=== PATIENT | female | born 1995 | race Caucasian/White ===

== ENCOUNTER → 2016-09-10 | Outpatient (CLI) | payer MEDICAID ==
--- NOTE | 2016-09-12 15:06 | US ---
EXAM DATE: 09/10/16 PATIENT'S AGE: 21 Patient: LEE ASHLEY Facility: [place], [place] Site . Site : 1995 Study: US OB Pelvis [id number]/13/2017 10:23:32 AM Ordering Physician: Miesha Edwards Final Report: INDICATION: survey. Gestational age by LMP of 21 weeks and 0 days. TECHNIQUE: Ultrasound OB pelvis. Real-time moore-scale imaging of the fetus was performed. COMPARISON: None. FINDINGS: Sonographic imaging demonstrates a single living intrauterine gestation. Fetus demonstrates a regular cardiac rate of 160 beats per minute. Fetus has a breech orientation. The placenta lies posteriorly without evidence of placenta previa. Amniotic fluid volume appears normal. The composite ultrasound gestational age is calculated at 21 weeks and 0 days with an estimated sonographic due date of 01/21/2017. The estimated weight is 410 grams which lies at the 59th percentile. The following biometric measurements were obtained: Biparietal diameter: 4.81 cm, 20 weeks and 4 days. Head circumference: 18.09 cm, 20 weeks and 4 days. Abdominal circumference: 16.51 cm, 21 weeks and 4 days. Femur length: 3.53 cm, 21 weeks and 2 days. On anatomic survey, there is a normal appearance of the cerebral ventricles, cisterna magna and cerebellum. The nose, lips, and facial profile appear normal. The cervical, thoracic and lumbar spines are well visualized and appear normal. There is a normal four-chamber heart and the left and right ventricular outflow tracts appear normal. diaphragm, stomach, kidneys and bladder appear normal. There is a normal three-vessel cord and cord insertion site. The four extremities appear normal. IMPRESSION: 1. Single living intrauterine . measurements are concordant with dates by LMP. 2. No gross abnormalities noted on anatomic survey. Dictated by Carlin Bui MD @ Sep 10 2016 11:52AM (Electronic Signature) Report Signed by Proxy and Original Signed Document filed in the Medical Record. [facility]
== END ==
LOC: MW.US 09:25
PROVIDERS: ATTEND Advanced Practice Midwife
DX: Z34.92 Encounter for supervision of normal pregnancy, unspecified, second trimester (principal); Z3A.21 21 weeks gestation of pregnancy
CPT/HCPCS: 76805; 76805-26

== ENCOUNTER → 2016-10-08 | Outpatient (CLI) | payer MEDICAID | LOC: MW.CHOBGYN 07:31 | PROVIDERS: ATTEND Advanced Practice Midwife | DX: Z34.90 Encounter for supervision of normal pregnancy, unspecified, unspecified trimester (principal) | CPT/HCPCS: 36415; 82950; 85027; 86850 ==

== ENCOUNTER 2017-01-23 11:01 | Inpatient (IN) | payer MEDICAID ==
[2017-01-23] MEDS ORDERED: Carboprost Tromethamine 250 MCG/1 ML Amp IM PRN (11:34)
[2017-01-23] MEDS ORDERED: Misoprostol 25 MCG (1/4 of 100 MCG) Tab PO PRN (11:34)
[2017-01-23] MEDS ORDERED: Methylergonovine 0.2 MG/1 ML Amp IM PRN (11:34)
[2017-01-23] MEDS ORDERED: Terbutaline 1 MG/ML SDV SUBCUT PRN (11:34)
[2017-01-23] MEDS ORDERED: Nalbuphine 10 MG/1 ML Vial IVPUSH PRN (11:34)
[2017-01-23] MEDS ORDERED: Lidocaine 1% 50 ML MDV INJECT PRN (11:34)
[2017-01-23] MEDS ORDERED: Water For Irrigation,Sterile 1,000 ML Container IRR PRN (11:34)
[2017-01-23] MEDS ORDERED: Misoprostol 25 MCG (1/4 of 100 MCG) Tab VAG PRN (11:34)
[2017-01-23] MEDS ORDERED: Misoprostol 200 MCG Tab PO PRN (11:34)
[2017-01-23] MEDS ORDERED: Sodium Chloride 0.9% 2.5 ML Syringe FLUSH PRN (11:34)
[2017-01-23] MEDS ORDERED: Sodium Chloride 0.9% 10 ML Syringe FLUSH PRN (11:34)
[2017-01-23] MEDS ORDERED: Misoprostol 25 MCG (1/4 of 100 MCG) Tab PO SCH (11:45)
[2017-01-23] MEDS ORDERED: Oxytocin/Lactated Ringers 30 UNIT/500 ML BAG IV SCH ×2 (11:45)
[2017-01-23 12:55] LABS: CHLORIDE,CL 108 mmol/L (98-110); SODIUM,NA 139 mmol/L (136-146)
[2017-01-23] MEDS: Misoprostol 25 MCG (1/4 of 100 MCG) Tab VAG SCH (19:47)
[2017-01-24] MEDS: Misoprostol 25 MCG (1/4 of 100 MCG) Tab VAG SCH (01:20)
[2017-01-24] MEDS: Lactated Ringers 1,000 ML IV SCH ×4 (02:37→16:12)
[2017-01-24] MEDS ORDERED: Oxytocin/Lactated Ringers 30 UNIT/500 ML BAG IV SCH (06:30)
--- NOTE | 2017-01-24 07:32 | PCM.LDHP ---
L&D History of Present Illness - General Date of Service: 01/23/17 Admit Problem/Dx: Patient Status Order with Admit Dx/Problem 01/23/17 11:35 Patient Status [ADT] Routine Admission Diagnosis/Problem Admission Diagnosis/Problem 01/24/17 07:28 21 yo EDC 01/21/2017 40 3/7 wks gestation, B+, RI, GBS neg. Admitted to L&D for IOL due to elevated blood pressures and edema. Source of Information: Patient History Limitations: Reports: No Limitations - History of Present Illness Improves with: Reports: None Worsens with: Reports: None Associated Symptoms: Reports: N - Related Data Allergies/Adverse Reactions: Allergies Allergy/AdvReac Type Severity Reaction Status Date / Time No Known Allergies Allergy Verified 01/16/17 09:08 Past Medical History [employer] History: Reports: Social & Family History - Family History Family Medical History: Noncontributory - Tobacco Use Smoking Status *Q: Former Smoker Years of Tobacco use: 6 Packs/Tins Daily: 0.5 Used Tobacco, but Quit: Yes Month Tobacco Last Used: december 2015 Second Hand Smoke Exposure: No - Caffeine Use Caffeine Use: Reports: Coffee, Soda - Recreational Drug Use Recreational Drug Use: No H&P Review of Systems - Review of Systems: Review Of Systems: ROS reveals no pertinent complaints other than HPI. General: Reports: No Symptoms HEENT: Reports: No Symptoms Pulmonary: Reports: No Symptoms Cardiovascular: Reports: No Symptoms Gastrointestinal: Reports: No Symptoms Genitourinary: Reports: No Symptoms Musculoskeletal: Reports: No Symptoms Skin: Reports: No Symptoms Psychiatric: Reports: No Symptoms Neurological: Reports: No Symptoms Hematologic/Lymphatic: Reports: No Symptoms Immunologic: Reports: No Symptoms L&D Exam - Exam Exam: See Below - Vital Signs Weight: 93.44 kg - Exam General: Alert, Oriented, Cooperative HEENT: Hearing Intact Lungs: Normal Respiratory Effort GI/Abdominal Exam: Soft, Non-Tender, No Organomegaly (gravid) Rectal Exam: Deferred Genitourinary: Normal bimanual exam, Cervical dilitation Back Exam: Full Range of Motion Extremities: Normal Range of Motion, Non-Tender, Pedal Edema Skin: Warm, Dry, Intact Neurological: Cranial Nerves Intact, Normal Speech, Normal Tone, Other (denies headaches) Psychiatric: Alert, Normal Affect, Normal Mood - Patient Data Lab Results Last 24 hrs: Laboratory Results - last 24 hr 01/23/17 01/23/17 01/23/17 Range/Units 11:41 12:03 12:03 WBC 6.75 (4.0-11.0) K/uL RBC 3.14 L (4.30-5.90) M/uL Hgb 9.7 L (12.0-16.0) g/dL Hct 28.4 L (36.0-46.0) % MCV 90.4 (80.0-98.0) fL MCH 30.9 (27.0-32.0) pg MCHC 34.2 (31.0-37.0) g/dL RDW Std Deviation 46.8 (28.0-62.0) fl RDW Coeff of Alisson 14 (11.0-15.0) % Plt Count 250 (150-400) K/uL MPV 10.70 (7.40-12.00) fL Nucleated RBC % 0.0 /100WBC Nucleated RBCs # 0 K/uL Sodium 139 (136-146) mmol/L Potassium 3.8 (3.5-5.1) mmol/L Chloride 108 (98-110) mmol/L Carbon Dioxide 23 (21-31) mmol/L BUN 5 L (6.0-23.0) mg/dL Creatinine 0.6 (0.6-1.5) mg/dL Est Cr Clr Drug Dosing 147.10 mL/min Estimated GFR (MDRD) > 60.0 ml/min Glucose 65 (60-110) mg/dL Uric Acid (2.1-6.2) mg/dL Calcium 8.7 L (8.8-10.8) mg/dL Total Bilirubin 0.5 (0.1-1.5) mg/dL AST 24 (5-40) IU/L ALT 14 (8-54) IU/L Alkaline Phosphatase 205 H (40-150) Total Protein 5.7 L (6.0-8.0) g/dL Albumin 3.0 L (3.5-5.0) g/dL Globulin 2.7 (2.0-3.5) g/dL Albumin/Globulin Ratio 1.1 L (1.3-2.8) Ur Random Creatinine 29.5 mg/dL U Random Total Protein < 6.8 mg/dL Protein/Creatinin Ratio Blood Type Antibody Screen 01/23/17 01/23/17 Range/Units 12:03 12:03 WBC (4.0-11.0) K/uL RBC (4.30-5.90) M/uL Hgb (12.0-16.0) g/dL Hct (36.0-46.0) % MCV (80.0-98.0) fL MCH (27.0-32.0) pg MCHC (31.0-37.0) g/dL RDW Std Deviation (28.0-62.0) fl RDW Coeff of Alisson (11.0-15.0) % Plt Count (150-400) K/uL MPV (7.40-12.00) fL Nucleated RBC % /100WBC Nucleated RBCs # K/uL Sodium (136-146) mmol/L Potassium (3.5-5.1) mmol/L Chloride (98-110) mmol/L Carbon Dioxide (21-31) mmol/L BUN (6.0-23.0) mg/dL Creatinine (0.6-1.5) mg/dL Est Cr Clr Drug Dosing mL/min Estimated GFR (MDRD) ml/min Glucose (60-110) mg/dL Uric Acid 4.1 (2.1-6.2) mg/dL Calcium (8.8-10.8) mg/dL Total Bilirubin (0.1-1.5) mg/dL AST (5-40) IU/L ALT (8-54) IU/L Alkaline Phosphatase (40-150) Total Protein (6.0-8.0) g/dL Albumin (3.5-5.0) g/dL Globulin (2.0-3.5) g/dL Albumin/Globulin Ratio (1.3-2.8) Ur Random Creatinine mg/dL U Random Total Protein mg/dL Protein/Creatinin Ratio Blood Type B POSITIVE Antibody Screen NEGATIVE Result Diagrams: 01/23/17 12:03 01/23/17 12:03 - Problem List (1) Supervision of normal IUP (intrauterine ) in primigravida SNOMED Code(s): 90907162, 755889008, 104633013, 350619827 ICD Code: Z34.00 - ENCNTR FOR SUPRVSN OF NORMAL FIRST , UNSP TRIMESTER Status: Acute Priority: High Current Visit: Yes Qualifiers: Trimester: third trimester Qualified Code(s): Z34.03 - Encounter for supervision of normal first , third trimester (2) Elevated blood pressure affecting in third trimester, antepartum SNOMED Code(s): 97123024, 19522792, 575785257 ICD Code: O13.3 - GESTATIONAL HTN W/O SIGNIFICANT PROTEINURIA, THIRD TRIMESTER Status: Acute Priority: High Current Visit: Yes Problem List Initiated/Reviewed/Updated: Yes Orders Last 24hrs: Active Orders 24 hr Category Date Time Status Patient Status [ADT] Routine ADT 01/23/17 11:35 Active Bedrest Bathroom Privileges [RC] ASDIRECTED Care 01/23/17 11:35 Active Communication Order [RC] ASDIRECTED Care 01/23/17 11:35 Active Communication Order [RC] ASDIRECTED Care 01/23/17 11:35 Active Communication Order [RC] ASDIRECTED Care 01/23/17 11:35 Active Heart Tones [RC] CONTINUOUS Care 01/23/17 11:35 Active Non Stress Test [RC] PER UNIT ROUTINE Care 01/23/17 11:35 Active May Shower [RC] ASDIRECTED Care 01/23/17 11:35 Active Notify Provider [RC] PRN Care 01/23/17 11:35 Active Notify Provider [RC] PRN Care 01/23/17 11:35 Active Notify Provider [RC] PRN Care 01/23/17 11:35 Active Notify Provider [RC] STAT Care 01/23/17 11:35 Active Oxygen Therapy [RC] ASDIRECTED Care 01/23/17 11:35 Active Up ad Debra [RC] ASDIRECTED Care 01/23/17 11:35 Active Vaginal Exam [RC] PRN Care 01/23/17 11:35 Active Vaginal Exam [RC] PRN Care 01/23/17 11:35 Active Vital Signs [RC] PER UNIT ROUTINE Care 01/23/17 11:35 Active Vital Signs [RC] PER UNIT ROUTINE Care 01/23/17 11:35 Active Regular Diet [DIET] Diet 01/23/17 Breakfast Active Regular Diet [DIET] Diet 01/23/17 Breakfast Active Carboprost Tromethamine [Hemabate DS] Med 01/23/17 11:34 Active 250 mcg IM ASDIRECTED PRN Lactated Ringers [Ringers, Lactated] 1,000 ml [facility] 01/23/17 11:45 Active IV ASDIRECTED Lidocaine 1% [Xylocaine 1%] [facility] 01/23/17 11:34 Active 50 ml INJECT .ONCE PRN Methylergonovine [Methergine] [facility] 01/23/17 11:34 Active 0.2 mg IM ASDIRECTED PRN Misoprostol [Cytotec] [facility] 01/23/17 11:34 Active 200 mcg PO .ONCE PRN Misoprostol [Cytotec] [facility] 01/23/17 11:45 Active 25 mcg PO .ONCE Misoprostol [Cytotec] [facility] 01/23/17 11:34 Active 25 mcg PO Q4H PRN Misoprostol [Cytotec] [facility] 01/23/17 11:45 Active 25 mcg VAG .ONCE Misoprostol [Cytotec] [facility] 01/23/17 11:34 Active 25 mcg VAG Q4H PRN Nalbuphine [Nubain] [facility] 01/23/17 11:34 Active 10 mg IVPUSH ASDIRECTED PRN Oxytocin/Lactated Ringers [Pitocin in LR 30 Units/500 [facility] 01/23/17 11:45 Active ML] 30 unit in 500 ml IV TITRATE Oxytocin/Lactated Ringers [Pitocin in LR 30 Units/500 [facility] 01/24/17 06:30 Active ML] 30 unit in 500 ml IV TITRATE Sodium Chloride 0.9% [Saline Flush] [facility] 01/23/17 11:34 Active 10 ml FLUSH ASDIRECTED PRN Sodium Chloride 0.9% [Saline Flush] [facility] 01/23/17 11:34 Active 2.5 ml FLUSH ASDIRECTED PRN Terbutaline [Brethine] [facility] 01/23/17 11:34 Active 0.25 mg SUBCUT ASDIRECTED PRN Water For Irrigation,Sterile [Sterile Water for [facility] 01/23/17 11:34 Active Irrigation] 1,000 ml IRR ASDIRECTED PRN Scalp Electrode [WOMSER] Per Unit Routine Ot 01/23/17 11:35 Ordered Medication Administration Instruction [OM.PC] Q3H Ot 01/23/17 11:45 Ordered Peripheral IV Insertion Adult [OM.PC] Routine Ot 01/23/17 11:35 Ordered Resuscitation Status Routine Resus Stat 01/23/17 11:34 Ordered Medication Orders Carboprost Tromethamine (Hemabate Ds) 250 mcg IM ASDIRECTED PRN PRN Reason: Post Hemorrhage Lactated Ringer's (Ringers, Lactated) 1,000 mls @ 150 mls/hr IV ASDIRECTED FIDEL Last Admin: 01/24/17 02:37 Dose: 150 mls/hr Oxytocin/Lactated Ringer's (Pitocin In Lr 30 Units/500 Ml) 30 unit in 500 mls @ 2 mls/hr IV TITRATE FIDEL; 2 MUNITS/MIN PRN Reason: Protocol Oxytocin/Lactated Ringer's (Pitocin In Lr 30 Units/500 Ml) 30 unit in 500 mls @ 2 mls/hr IV TITRATE FIDEL; 2 MUNITS/MIN PRN Reason: Protocol Last Admin: 01/24/17 06:47 Dose: 2 munits/min, 2 mls/hr Lidocaine HCl (Xylocaine 1%) 50 ml INJECT .ONCE PRN PRN Reason: Laceration repair Methylergonovine Maleate (Methergine) 0.2 mg IM ASDIRECTED PRN PRN Reason: Post Hemorrhage Misoprostol (Cytotec) 200 mcg PO .ONCE PRN PRN Reason: Post Hemorrhage Misoprostol (Cytotec) 25 mcg VAG .ONCE FIDEL Last Admin: 01/24/17 01:20 Dose: 25 mcg Admin: 01/23/17 19:47 Dose: 25 mcg Misoprostol (Cytotec) 25 mcg VAG Q4H PRN PRN Reason: Cervical Ripening Stop: 01/24/17 15:35 Last Admin: 01/24/17 01:22 Dose: 25 mcg Misoprostol (Cytotec) 25 mcg PO .ONCE FIDEL Last Admin: 01/23/17 19:47 Dose: 25 mcg Misoprostol (Cytotec) 25 mcg PO Q4H PRN PRN Reason: Cervical Ripening Stop: 01/24/17 15:35 Nalbuphine HCl (Nubain) 10 mg IVPUSH ASDIRECTED PRN PRN Reason: Pain (severe 7-10) Stop: 01/24/17 11:35 Sodium Chloride (Saline Flush) 10 ml FLUSH ASDIRECTED PRN PRN Reason: Keep Vein Open Sodium Chloride (Saline Flush) 2.5 ml FLUSH ASDIRECTED PRN PRN Reason: Keep Vein Open Sterile Water (Sterile Water For Irrigation) 1,000 ml IRR ASDIRECTED PRN PRN Reason: delivery Terbutaline Sulfate (Brethine) 0.25 mg SUBCUT ASDIRECTED PRN PRN Reason: Tacysystole Assessment/Plan Comment:: IOL A:21 yo EDC 01/21/2017 40 3/7 wks gestation, B+, RI, GBS neg. Admitted to L& D for IOL due to elevated blood pressures and edema. P: Admit, IOL with Cytotec then pitocin if needed. Epidural prn, anticipate
[2017-01-24] MEDS ORDERED: Ropivacaine 0.2% 2 MG/ML 20 ML SDV ONE (07:46)
--- NOTE | 2017-01-24 08:18 | PCM.PREANE ---
Preanesthetic Assessment - Procedure Proposed Procedure: induction of labor for gestational htn - Anesthesia/Transfusion/Family Hx Anesthesia History: Prior Anesthesia Without Reaction Family History of Anesthesia Reaction: No Transfusion History: No Prior Transfusion(s) - Review of Systems Other: Reports: None - Physical Assessment Height: 5 ft 8 in Weight: 93.44 kg ASA Class: 2 Mental Status: Alert & Oriented x3 Airway Class: Mallampati = 1 Dentition: Reports: Normal Dentition Thyro-Mental Finger Breadths: 3 Mouth Opening Finger Breadths: 3 ROM/Head Extension: Full - Lab Values: Laboratory Last Values WBC 6.75 K/uL (4.0-11.0) 01/23/17 12:03 RBC 3.14 M/uL (4.30-5.90) L 01/23/17 12:03 Hgb 9.7 g/dL (12.0-16.0) L 01/23/17 12:03 Hct 28.4 % (36.0-46.0) L 01/23/17 12:03 MCV 90.4 fL (80.0-98.0) 01/23/17 12:03 MCH 30.9 pg (27.0-32.0) 01/23/17 12:03 MCHC 34.2 g/dL (31.0-37.0) 01/23/17 12:03 RDW Std Deviation 46.8 fl (28.0-62.0) 01/23/17 12:03 RDW Coeff of Alisson 14 % (11.0-15.0) 01/23/17 12:03 Plt Count 250 K/uL (150-400) 01/23/17 12:03 MPV 10.70 fL (7.40-12.00) 01/23/17 12:03 Nucleated RBC % 0.0 /100WBC 01/23/17 12:03 Nucleated RBCs # 0 K/uL 01/23/17 12:03 Sodium 139 mmol/L (136-146) 01/23/17 12:03 Potassium 3.8 mmol/L (3.5-5.1) 01/23/17 12:03 Chloride 108 mmol/L (98-110) 01/23/17 12:03 Carbon Dioxide 23 mmol/L (21-31) 01/23/17 12:03 BUN 5 mg/dL (6.0-23.0) L 01/23/17 12:03 Creatinine 0.6 mg/dL (0.6-1.5) 01/23/17 12:03 Est Cr Clr Drug Dosing 147.10 mL/min 01/23/17 12:03 Estimated GFR (MDRD) > 60.0 ml/min 01/23/17 12:03 Glucose 65 mg/dL (60-110) 01/23/17 12:03 Uric Acid 4.1 mg/dL (2.1-6.2) 01/23/17 12:03 Calcium 8.7 mg/dL (8.8-10.8) L 01/23/17 12:03 Total Bilirubin 0.5 mg/dL (0.1-1.5) 01/23/17 12:03 AST 24 IU/L (5-40) 01/23/17 12:03 ALT 14 IU/L (8-54) 01/23/17 12:03 Alkaline Phosphatase 205 (40-150) H 01/23/17 12:03 Total Protein 5.7 g/dL (6.0-8.0) L 01/23/17 12:03 Albumin 3.0 g/dL (3.5-5.0) L 01/23/17 12:03 Globulin 2.7 g/dL (2.0-3.5) 01/23/17 12:03 Albumin/Globulin Ratio 1.1 (1.3-2.8) L 01/23/17 12:03 Ur Random Creatinine 29.5 mg/dL 01/23/17 11:41 U Random Total Protein < 6.8 mg/dL 01/23/17 11:41 Protein/Creatinin Ratio 01/23/17 11:41 Blood Type B POSITIVE 01/23/17 12:03 Antibody Screen NEGATIVE 01/23/17 12:03 - Allergies Allergies/Adverse Reactions: Allergies Allergy/AdvReac Type Severity Reaction Status Date / Time No Known Allergies Allergy Verified 01/16/17 09:08 - Blood Blood Available: Yes Product(s) Available: PRBC - Acknowledgements Anesthesia Type Planned: Epidural Pt an Appropriate Candidate for the Planned Anesthesia: Yes Alternatives and Risks of Anesthesia Discussed w Pt/Guardian: Yes Pt/Guardian Understands and Agrees with Anesthesia Plan: Yes PreAnesthesia Questionnaire CAMP NURSE History: Reports: - SUBSTANCE USE Smoking Status *Q: Former Smoker Tobacco Use Within Last Twelve Months: No Second Hand Smoke Exposure: No Recreational Drug Use History: No - CURRENT (IN HOUSE) MEDS Current Meds: Current Medications Carboprost Tromethamine (Hemabate Ds) 250 mcg IM ASDIRECTED PRN PRN Reason: Post Hemorrhage Lactated Ringer's (Ringers, Lactated) 1,000 mls @ 150 mls/hr IV ASDIRECTED FIDEL Last Admin: 01/24/17 07:48 Dose: 150 mls/hr Oxytocin/Lactated Ringer's (Pitocin In Lr 30 Units/500 Ml) 30 unit in 500 mls @ 2 mls/hr IV TITRATE FIDEL; 2 MUNITS/MIN PRN Reason: Protocol Oxytocin/Lactated Ringer's (Pitocin In Lr 30 Units/500 Ml) 30 unit in 500 mls @ 2 mls/hr IV TITRATE FIDEL; 2 MUNITS/MIN PRN Reason: Protocol Last Admin: 01/24/17 06:47 Dose: 2 munits/min, 2 mls/hr Lidocaine HCl (Xylocaine 1%) 50 ml INJECT .ONCE PRN PRN Reason: Laceration repair Methylergonovine Maleate (Methergine) 0.2 mg IM ASDIRECTED PRN PRN Reason: Post Hemorrhage Misoprostol (Cytotec) 200 mcg PO .ONCE PRN PRN Reason: Post Hemorrhage Misoprostol (Cytotec) 25 mcg VAG .ONCE FIDEL Last Admin: 01/24/17 01:20 Dose: 25 mcg Misoprostol (Cytotec) 25 mcg VAG Q4H PRN PRN Reason: Cervical Ripening Stop: 01/24/17 15:35 Last Admin: 01/24/17 01:22 Dose: 25 mcg Misoprostol (Cytotec) 25 mcg PO .ONCE FIDEL Last Admin: 01/23/17 19:47 Dose: 25 mcg Misoprostol (Cytotec) 25 mcg PO Q4H PRN PRN Reason: Cervical Ripening Stop: 01/24/17 15:35 Nalbuphine HCl (Nubain) 10 mg IVPUSH ASDIRECTED PRN PRN Reason: Pain (severe 7-10) Stop: 01/24/17 11:35 Sodium Chloride (Saline Flush) 10 ml FLUSH ASDIRECTED PRN PRN Reason: Keep Vein Open Sodium Chloride (Saline Flush) 2.5 ml FLUSH ASDIRECTED PRN PRN Reason: Keep Vein Open Sterile Water (Sterile Water For Irrigation) 1,000 ml IRR ASDIRECTED PRN PRN Reason: delivery Terbutaline Sulfate (Brethine) 0.25 mg SUBCUT ASDIRECTED PRN PRN Reason: Tacysystole Discontinued Medications Oxytocin/Lactated Ringer's (Pitocin In Lr 30 Units/500 Ml) 30 unit in 500 mls @ 999 mls/hr IV ASDIRECTED FIDEL PRN Reason: 999 MUNITS/MIN Stop: 01/23/17 12:16 Ropivacaine/Fentanyl/NS (Fentanyl 2 Mcg-Ropiv 0.2%-Ns) Confirm Administered Dose 100 mls @ as directed .ROUTE .STK-MED ONE Stop: 01/24/17 07:46 Ropivacaine (Naropin 0.2%) Confirm Administered Dose 20 ml .ROUTE .STK-MED ONE Stop: 01/24/17 07:47
[2017-01-24] MEDS ORDERED: Calcium Carbonate 500 MG Tab.Chew PO ONE (14:15)
[2017-01-24] MEDS ORDERED: Ranitidine 15 MG/ML Syrup 10 ML UD Cup PO ONE (14:15)
[2017-01-24] MEDS ORDERED: Acetaminophen 500 MG Tab PO ONE (17:51)
[2017-01-24] MEDS ORDERED: Lactated Ringers 500 ML IV SCH (18:00)
[2017-01-24] MEDS ORDERED: Ondansetron 4 MG/2 ML SDV IVPUSH ONE (18:32)
[2017-01-24] MEDS ORDERED: Bupivacaine 0.5% 10 ML SDV ONE ×2 (19:07→19:32)
[2017-01-24] MEDS ORDERED: fentaNYL 100 MCG/2 ML SDV ONE (19:32)
[2017-01-24] MEDS ORDERED: Acetaminophen 500 MG Tab PO PRN ×2 (20:22)
[2017-01-24] MEDS ORDERED: Bisacodyl 10 MG Supp RECTAL PRN (20:22)
[2017-01-24] MEDS ORDERED: Ibuprofen 400 MG Tab PO PRN (20:22)
[2017-01-24] MEDS ORDERED: Witch Hazel Medicated Pads 40/Jar TOP PRN (20:22)
[2017-01-24] MEDS ORDERED: Benzocaine/Menthol 20%-0.5% Spray 78 GM Cannister TOP PRN (20:22)
[2017-01-24] MEDS ORDERED: Lanolin 100% Cream 7 GM Tube TOP PRN (20:22)
[2017-01-24] MEDS ORDERED: ePHEDrine 50 MG/ML SDV ONE (20:33)
[2017-01-24] MEDS: oxyCODONE 5 MG Tab PO PRN (20:57)
[2017-01-24] MEDS: Ibuprofen 800 MG Tab PO PRN (20:57)
[2017-01-24] MEDS: Docusate Sodium 100 MG Cap PO PRN (20:58)
[2017-01-24] MEDS ORDERED: diphenhydrAMINE 50 MG Cap PO ONE (21:31)
[2017-01-25] MEDS: oxyCODONE 5 MG Tab PO PRN ×2 (05:12→09:38)
[2017-01-25] MEDS: Ibuprofen 800 MG Tab PO PRN (05:13)
--- NOTE | 2017-01-25 07:56 | PCM.DCSUM1 ---
Discharge Summary - Hospital Course Free Text/Narrative:: Discharge home/to [place] to be with baby. Follow up 6 weeks or sooner if needed. - Discharge Data Discharge Date: 01/25/17 Discharge Disposition: Home, Self-Care 01 Condition: Good - Discharge Diagnosis/Problem(s) (1) Supervision of normal IUP (intrauterine ) in primigravida SNOMED Code(s): 87563562, 856572060, 965038696, 560471489 ICD Code: Z34.00 - ENCNTR FOR SUPRVSN OF NORMAL FIRST , UNSP TRIMESTER Status: Acute Priority: High Current Visit: Yes Qualifiers: Trimester: third trimester Qualified Code(s): Z34.03 - Encounter for supervision of normal first , third trimester (2) Elevated blood pressure affecting in third trimester, antepartum SNOMED Code(s): 39304242, 18765646, 748046280 ICD Code: O13.3 - GESTATIONAL HTN W/O SIGNIFICANT PROTEINURIA, THIRD TRIMESTER Status: Acute Priority: High Current Visit: Yes - Patient Instructions Diet: Usual Diet as Tolerated Activity: As Tolerated Driving: Do Not Drive Showering/Bathing: May Shower Notify Provider of: Fever, Increased Pain, Swelling and Redness, Drainage, Nausea and/or Vomiting Other/Special Instructions: Discharge home/to [place] to be with baby. Follow up 6 weeks or sooner if needed. - Discharge Plan Referrals: [facility] [Outside] Grace Whiteside CNM [Mid-] - 03/07/17 1:30 pm - General Info Date of Service: 01/25/17 Admission Dx/Problem (Free Text: Patient Status Order with Admit Dx/Problem 01/23/17 11:35 Patient Status [ADT] Routine Admission Diagnosis/Problem Admission Diagnosis/Problem 01/24/17 07:28 21 yo EDC 01/21/2017 40 3/7 wks gestation, B+, RI, GBS neg. Admitted to L&D for IOL due to elevated blood pressures and edema. Functional Status: Reports: Pain Controlled, Tolerating Diet, Ambulating, Urinating - Review of Systems General: Reports: No Symptoms HEENT: Reports: No Symptoms Pulmonary: Reports: No Symptoms Cardiovascular: Reports: No Symptoms Gastrointestinal: Reports: No Symptoms Genitourinary: Reports: No Symptoms Musculoskeletal: Reports: No Symptoms Skin: Reports: No Symptoms Neurological: Reports: No Symptoms Psychiatric: Reports: No Symptoms - Patient Data Vitals - Most Recent: Last Vital Signs Temp 36.8 C 01/25/17 06:00 Pulse 92 01/25/17 06:00 Resp 17 01/25/17 06:00 BP 107/65 01/25/17 06:00 Pulse Ox 98 01/25/17 04:54 Weight - Most Recent: 93.44 kg I&O - Last 24 hours: Intake & Output 01/24/17 01/25/17 01/25/17 22:59 06:59 14:59 Intake Total 0 735 Balance 0 735 Lab Results - Last 24 hrs: Laboratory Results - last 24 hr 01/23/17 01/24/17 01/25/17 Range/Units 12:03 20:50 06:15 Hgb 7.4 L 8.7 L (12.0-16.0) g/dL Hct 21.9 L 25.2 L (36.0-46.0) % Blood Type B POSITIVE Antibody Screen NEGATIVE Crossmatch See Detail Med Orders - Current: Current Medications Acetaminophen (Tylenol Extra Strength) 500 mg PO Q4H PRN PRN Reason: Pain Acetaminophen (Tylenol Extra Strength) 1,000 mg PO Q4H PRN PRN Reason: Pain Benzocaine/Menthol (Dermoplast Pain Relief 20%-0.5% [place]) 78 gm TOP ASDIRECTED PRN PRN Reason: Perineal Comfort Measure Last Admin: 01/25/17 05:15 Dose: 78 can Bisacodyl (Dulcolax) 10 mg RECTAL .ONCE PRN PRN Reason: Constipation Docusate Sodium (Colace) 100 mg PO BID PRN PRN Reason: Constipation Last Admin: 01/24/17 20:58 Dose: 100 mg Emollient Ointment (Lansinoh Hpa) 0 gm TOP ASDIRECTED PRN PRN Reason: Sore Nipples Ibuprofen (Motrin) 400 mg PO Q4H PRN PRN Reason: Pain Ibuprofen (Motrin) 800 mg PO Q6H PRN PRN Reason: Pain Last Admin: 01/25/17 05:13 Dose: 800 mg Oxycodone HCl (Oxycodone) 5 mg PO Q2H PRN PRN Reason: Pain Last Admin: 01/25/17 05:12 Dose: 5 mg Witch Thania (Tucks) 1 pad TOP ASDIRECTED PRN PRN Reason: comfort care Last Admin: 01/25/17 05:17 Dose: 1 container Discontinued Medications Acetaminophen (Tylenol Extra Strength) 1,000 mg PO ONETIME ONE Stop: 01/24/17 17:52 Last Admin: 01/24/17 18:05 Dose: 1,000 mg Bupivacaine HCl (Sensorcaine-Mpf 0.5%) Confirm Administered Dose 10 ml .ROUTE .STK-MED ONE Stop: 01/24/17 19:08 Last Admin: 01/25/17 06:24 Dose: Not Given Bupivacaine HCl (Sensorcaine-Mpf 0.5%) Confirm Administered Dose 10 ml .ROUTE .STK-MED ONE Stop: 01/24/17 19:33 Last Admin: 01/25/17 06:24 Dose: Not Given Calcium Carbonate/Glycine (Tums) 1,000 mg PO ONETIME ONE Stop: 01/24/17 14:16 Last Admin: 01/24/17 14:18 Dose: 1,000 mg Carboprost Tromethamine (Hemabate Ds) 250 mcg IM ASDIRECTED PRN PRN Reason: Post Hemorrhage Diphenhydramine HCl (Benadryl) 50 mg PO ONETIME ONE Stop: 01/24/17 21:32 Ephedrine Sulfate (Ephedrine Sulfate) Confirm Administered Dose 50 mg .ROUTE .STK-MED ONE Stop: 01/24/17 20:34 Last Admin: 01/25/17 06:24 Dose: Not Given Fentanyl (Sublimaze) Confirm Administered Dose 100 mcg .ROUTE .STK-MED ONE Stop: 01/24/17 19:33 Last Admin: 01/25/17 06:24 Dose: Not Given Lactated Ringer's (Ringers, Lactated) 1,000 mls @ 150 mls/hr IV ASDIRECTED FIDEL Last Admin: 01/24/17 16:12 Dose: 150 mls/hr Oxytocin/Lactated Ringer's (Pitocin In Lr 30 Units/500 Ml) 30 unit in 500 mls @ 999 mls/hr IV ASDIRECTED FIDEL PRN Reason: 999 MUNITS/MIN Stop: 01/23/17 12:16 Oxytocin/Lactated Ringer's (Pitocin In Lr 30 Units/500 Ml) 30 unit in 500 mls @ 2 mls/hr IV TITRATE FIDEL; 2 MUNITS/MIN PRN Reason: Protocol Oxytocin/Lactated Ringer's (Pitocin In Lr 30 Units/500 Ml) 30 unit in 500 mls @ 2 mls/hr IV TITRATE FIDEL; 2 MUNITS/MIN PRN Reason: Protocol Last Titration: 01/24/17 20:00 Dose: 250 munits/min, 250 mls/hr Ropivacaine/Fentanyl/NS (Fentanyl 2 Mcg-Ropiv 0.2%-Ns) Confirm Administered Dose 100 mls @ as directed .ROUTE .STTelller-MED ONE Stop: 01/24/17 07:46 Last Admin: 01/25/17 06:23 Dose: Not Given Ropivacaine/Fentanyl/NS (Fentanyl 2 Mcg-Ropiv 0.2%-Ns) Confirm Administered Dose 100 mls @ as directed .ROUTE .Shiny Ads-MED ONE Stop: 01/24/17 13:52 Last Admin: 01/25/17 06:24 Dose: Not Given Lactated Ringer's (Ringers, Lactated) 500 mls @ 1,000 mls/hr IV ASDIRECTED FIDEL Ropivacaine/Fentanyl/NS (Fentanyl 2 Mcg-Ropiv 0.2%-Ns) Confirm Administered Dose 100 mls @ as directed .ROUTE .Shiny Ads-MED ONE Stop: 01/24/17 19:08 Last Admin: 01/25/17 06:24 Dose: Not Given Lidocaine HCl (Xylocaine 1%) 50 ml INJECT .ONCE PRN PRN Reason: Laceration repair Methylergonovine Maleate (Methergine) 0.2 mg IM ASDIRECTED PRN PRN Reason: Post Hemorrhage Misoprostol (Cytotec) 200 mcg PO .ONCE PRN PRN Reason: Post Hemorrhage Misoprostol (Cytotec) 25 mcg VAG .ONCE FIDEL Last Admin: 01/24/17 01:20 Dose: 25 mcg Misoprostol (Cytotec) 25 mcg VAG Q4H PRN PRN Reason: Cervical Ripening Stop: 01/24/17 15:35 Last Admin: 01/24/17 01:22 Dose: 25 mcg Misoprostol (Cytotec) 25 mcg PO .ONCE FDIEL Last Admin: 01/23/17 19:47 Dose: 25 mcg Misoprostol (Cytotec) 25 mcg PO Q4H PRN PRN Reason: Cervical Ripening Stop: 01/24/17 15:35 Nalbuphine HCl (Nubain) 10 mg IVPUSH ASDIRECTED PRN PRN Reason: Pain (severe 7-10) Stop: 01/24/17 11:35 Ondansetron HCl (Zofran) 4 mg IVPUSH ONETIME ONE Stop: 01/24/17 18:33 Last Admin: 01/24/17 18:51 Dose: 4 mg Ranitidine HCl (Zantac) 150 mg PO NOW ONE Stop: 01/24/17 14:16 Last Admin: 01/24/17 14:17 Dose: 150 mg Ropivacaine (Naropin 0.2%) Confirm Administered Dose 20 ml .ROUTE .STK-MED ONE Stop: 01/24/17 07:47 Last Admin: 01/25/17 06:23 Dose: Not Given Sodium Chloride (Saline Flush) 10 ml FLUSH ASDIRECTED PRN PRN Reason: Keep Vein Open Sodium Chloride (Saline Flush) 2.5 ml FLUSH ASDIRECTED PRN PRN Reason: Keep Vein Open Sterile Water (Sterile Water For Irrigation) 1,000 ml IRR ASDIRECTED PRN PRN Reason: delivery Terbutaline Sulfate (Brethine) 0.25 mg SUBCUT ASDIRECTED PRN PRN Reason: Tacysystole - Exam General: Reports: Alert, Oriented, Cooperative, No Acute Distress Lungs: Reports: Normal Respiratory Effort GI/Abdominal Exam: Soft, Non-Tender, No Organomegaly, No Distention (Female) Exam: Vaginal Bleeding, Other (MLE with repair) Rectal (Female) Exam: Deferred Extremities: Normal Range of Motion, Pedal Edema Skin: Reports: Warm, Dry, Intact Wound/Incisions: Reports: Healing Well Neurological: Reports: No New Focal Deficit, Normal Speech, Normal Tone Psy/Mental Status: Reports: Alert, Normal Affect, Normal Mood *Q Meaningful Use (DIS) - VTE *Q VTE Criteria *Q: - Stroke *Q Stroke Criteria *Q: - AMI *Q AMI Criteria *Q:
[2017-01-25 08:40] VITALS: BP 119/76
[2017-01-25] MEDS: Docusate Sodium 100 MG Cap PO PRN (09:37)
--- NOTE | 2017-01-25 15:33 | PCM48HPAN ---
Post Anesthesia Note - EVALUATION WITHIN 48HRS OF ANESTHETIC Vital Signs in Normal Range: Yes Patient Participated in Evaluation: Yes Respiratory Function Stable: Yes Airway Patent: Yes Cardiovascular Function Stable: Yes Hydration Status Stable: Yes Pain Control Satisfactory: Yes Nausea and Vomiting Control Satisfactory: Yes Mental Status Recovered: Yes
--- NOTE | 2017-01-28 06:14 | OR ---
SURGEON: Gus Medina MD DATE OF PROCEDURE: Ms. Uriarte is a 21-year-old patient. She is admitted for induction for PIH. She is term. She primarily is followed by our nurse risk consultant. She was induced with Cytotec and Pitocin. She responded to that very well and she had epidural anesthesia for labor analgesia. The patient's heart rate was category 1 through the entire process of labor. She progressed rather slowly, however, I was consulted to evaluate the patient when she was complete, complete +2 because the patient was exhausted and she was unable to push. Upon examination and assessing the patient, her vital sign was essentially is normal. The patient was uncomfortable because of the pain and because her epidural either is wearing off is not working properly. heart rate was category 1. Upon examination, the patient was complete, complete +2 and I can see about more than a dime of the head when the patient is pushed or bear down. She was in an OA position and I felt her pelvis was adequate and I felt that she is amenable to vacuum extraction. After consulting with the patient and her and explaining the option of vacuum extraction and , and I told them that if we were unable to do the vacuum extraction, we most likely will proceed to the section. They consented for the procedure. Then, the Anesthesia gave the patient intrathecal to relieve her pain and once her pain is relieved, she was able to push adequately and to cooperate with the instruction. Featheredge Machine Operator has attended at delivery and I used kiwi vacuum extraction and with gentle extraction, the head descended further. She needed episiotomy to make room for the fetus and then eventually the head and the shoulder delivered without any problem, and the fetus was delivered. At the time of the delivery, her heart rate was above 150 and she was breathing normal; however, the director of first impressions is to start proper support and resuscitation for the patient. The score is not available to me at this time. For the score report and full assessment of the baby, please refer to the director of first impressions note. The placenta delivered spontaneous, complete, and intact without any problem. Inspection of the episiotomy shows that extended to a 4th degree and we proceeded with a repair of 4th degree in layer without any problems and is repaired. The estimated blood loss on this patient is about 600 mL. She started with a rather borderline hematocrit, so we are ordering an H and H on the patient and see if we need to give her blood transfusion. AGUSTÍN / DAVE /[id number]
== END 2017-01-25 10:10 | disposition home or self-care (01) | DRG 775 ==
LOC: MW.OB 11:01 → OBSVTOIN 01-24 20:23
PROVIDERS: ADMIT Obstetrics & Gynecology; ATTEND Obstetrics & Gynecology
PROC: 10D07Z6 Extraction of Products of Conception, Vacuum, Via Natural or Artificial Opening (ICD-10-PCS; principal; 2017-01-24)
PROC: 0DQP0ZZ Repair Rectum, Open Approach (ICD-10-PCS; 2017-01-24)
PROC: 3E0P7GC Introduction of Other Therapeutic Substance into Female Reproductive, Via Natural or Artificial Opening (ICD-10-PCS; 2017-01-24)
PROC: 0W8NXZZ Division of Female Perineum, External Approach (ICD-10-PCS; 2017-01-24)
PROC: 00HU33Z Insertion of Infusion Device into Spinal Canal, Percutaneous Approach (ICD-10-PCS; 2017-01-24)
DX: O13.4 Gestational [pregnancy-induced] hypertension without significant proteinuria, complicating childbirth (principal); O70.3 Fourth degree perineal laceration during delivery; Z37.0 Single live birth; Z3A.40 40 weeks gestation of pregnancy
CPT/HCPCS: 36415; 36430; 59025; 80053; 82570; 84156; 84550; 85014; 85018; 85027; 86850; 86900; 86901; 86920; 86921; 86922; A9270-GY; J2405; J2795; J3010; J7120; P9016

== ENCOUNTER 2021-01-02 23:04 | Emergency (ER) | payer BC ==
[2021-01-02] MEDS ORDERED: Gentamicin 0.3% Ophth Soln 5 ML Bottle EYERT STA (23:45)
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
[2021-01-03 00:03] VITALS: BP 112/67; PULSE 79
== END 2021-01-03 00:03 | disposition home or self-care (01) ==
LOC: MW.ED 23:04
DX: H10.9 Unspecified conjunctivitis (principal)
CPT/HCPCS: 99283; A9270; 99282

== ENCOUNTER 2021-03-22 11:02 | Emergency (ER) | payer BC ==
[2021-03-22 14:14] LABS: BLOOD UREA NITROGEN,BUN 7 mg/dL (7.0-18.0); CARBON DIOXIDE,CO2 30.2 mmol/L (21.0-32.0); CHLORIDE,CL 102 mmol/L (98-107); GLUCOSE RANDOM 98 mg/dL (74-106); POTASSIUM,K 4.1 mmol/L (3.5-5.1); SODIUM,NA 139 mmol/L (136-145)
--- NOTE | 2021-03-22 16:12 | US ---
Indication: Early , lower abdominal pain, LMP 12/16/2020, beta-hCG of 885 on 03/22 Technique: Multiple grayscale and Doppler sonographic images of the pelvis. Scanning was performed transabdominally and transvaginally. Comparison: None Findings: The uterus measures 8.9 x 4.7 x 7.2 cm. There is a single intrauterine gestational sac with mean diameter of 0.6 cm, corresponding to approximate gestational age of 5 weeks 3 days. A yolk sac and pole are not demonstrated. The right ovary measures 5 x 4 x 3.3 x 2.4 cm and contains a 2.5 cm cystic focus, likely representing a corpus luteum. The left ovary measures 3.1 x 2.0 x 2.2 cm and appears unremarkable. Vascular flow is demonstrated to both ovaries by spectral Doppler interrogation. There is no appreciable pelvic free fluid. Impression: Single intrauterine gestational sac with approximate age of 5 weeks, 3 days by mean sac diameter. A yolk sac or pole are not demonstrated, likely due to very early gestation. Correlate with serial serum beta HCG measurements and follow-up ultrasound. Dictated by Lucina Martin MD @ 03/22/2021 4:10:24 PM (Electronically Signed)
--- NOTE | 2021-03-22 16:29 | EDM.PDOC ---
ED HPI GENERAL MEDICAL PROBLEM - General Chief Complaint: [employer] Problem Stated Complaint: / POSS ATOPIC Time Seen by Provider: 03/22/21 11:03 Source of Information: Reports: Patient History Limitations: Reports: No Limitations - History of Present Illness INITIAL COMMENTS - FREE TEXT/NARRATIVE: HISTORY AND PHYSICAL: History of present illness: Patient is a 25-year-old female who resents emergency room today with concern that she may have a possible ectopic . Patient states she is not having any symptoms or concerns but was seeing Dr. Medina who is going to give her IM methotrexate for possible ectopic . Patient states that she plans to follow with BERNADINE Powell at [facility] but states that she was not able to get an appointment for approximately 1 month. Patient states that she was unsure how far along she was as her menstrual cycle has been irregular with her last menstrual cycle being in November. Patient states that because of this, she made an appointment with Dr. Medina, as he was able to get her in sooner so she could find out the dating. Patient states that she has never planned to continue care with him and had only gone to find out how far along she was. Patient states that initially he did a transabdominal ultrasound and was unable to visualize any so then did a transvaginal. Dr. Medina told her at that time that he was unable to see anything so did an hCG quant blood level. Patient states that each time she has gotten this level drawn, it has gone up but has not trended in the way that Dr. Medina it is normal. Because of this, Dr. Medina recommended IM methotrexate for possible ectopic , however, patient states that she feels as if this is normal and that he is trying to abort a normal . Patient denies any vaginal bleeding, change in discharge, or abdominal pain. Patient states that she did call [facility] and she does have an appointment tomorrow with her [employer] provider, Dr. Alford at 1245. Patient denies fever, chills, chest pain, shortness of breath, or cough. Denies headache, neck stiff ness, change in vision, syncope, or near syncope. Denies nausea, vomiting, abdominal pain, diarrhea, constipation, or dysuria. Has not noted any blood in urine or stool. Patient has been eating and drinking appropriately. Review of systems: As per history of present illness and below otherwise all systems reviewed and negative. Past medical history: As per history of present illness and as reviewed below otherwise noncontributory. Surgical history: As per history of present illness and as reviewed below otherwise noncontributory. Social history: See social history for further information Family history: As per history of present illness and as reviewed below otherwise noncontributory. Physical exam: General: Patient is alert, oriented, and in no acute distress. Patient sitting comfortably on exam table. Vitals stable and reviewed by me. HEENT: Atraumatic, normocephalic, pupils equal and reactive bilaterally, negative for conjunctival pallor or scleral icterus, mucous membranes moist, TMs normal bilaterally, throat clear, neck supple, nontender, trachea midline. No drooling or trismus noted. No meningeal signs. No hot potato voice noted. Lungs: Clear to auscultation, breath sounds equal bilaterally, chest nontender. Heart: S1S2, regular rate and rhythm without overt murmur Abdomen: Soft, nondistended, nontender. Negative for masses or hepatosplenomegaly. Negative for costovertebral tenderness. Pelvis: Stable nontender. Genitourinary: Deferred. Rectal: Deferred. Skin: Intact, warm, dry. No lesions or rashes noted. Extremities: Atraumatic, negative for cords or calf pain. Neurovascular unremarkable. Neuro: Awake, alert, oriented. Cranial nerves II through XII unremarkable. Cerebellum unremarkable. Motor and sensory unremarkable throughout. Exam nonfocal. Notes: Patient is a 25-year-old female who presents emergency room today with concern of possible ectopic as she has been having abnormal hCG rise in early without evidence of gestation on ultrasound according to patient. Upon arrival to the ED, patient is vitally stable and well-appearing on exam and does not have any abdominal pain or stated complaints. Will repeat hCG, obtain blood type, and transvaginal ultrasound. CBC mild derangements are unremarkable. CMP unremarkable. hCG quant today is 885, yesterday she had an hCG quant of 691, on 03/19 it was 568, and 03/17 was 327, and 03/14 was 104. Blood type is B+. Transvaginal ultrasound shows a single intrauterine gestational sac with approximately age of 5 weeks and 3 days by mean sac diameter. A yolk sac or pole are not demonstrated, likely due to very early gestation. Correlate with serial beta hCG measurements and follow-up ultrasound. Upon reevaluation of patient, she remains vitally stable and has no symptoms today in the emergency room. Given that patient is transferring care to Dr. Alford does not plan to receive any further care by Dr. Medina, I did call and speak to the OBGYN astronomy teacher, Dr. Jaramillo, and thoroughly discussed patient's case. She would like patient to keep the appointment tomorrow with Dr. Alford and has no other recommendations at this time. Strict return precautions thoroughly discussed with patient. All signs and symp toms that were prompt return to the ED thoroughly discussed with patient. Discussed importance with Dr. Alford, [employer] provider tomorrow. Voices understanding and is agreeable to plan of care. Denies any further questions or concerns at this time. Diagnostics: CBC, CMP, HCG Quant, Rh/Blood type, TVUS Therapeutics: None Prescription: None Impression: Abnormal rise in beta hcg in early Plan: 1. Please start and/or continue to take your vitamin with folic acid once daily. 2. Pelvic rest until cleared by your OBGYN (no tampons, sex, etc...) 3. Tylenol as needed for pain management. This is safe to use in . 4. Follow up with your [employer]INEER tomorrow as scheduled. Return to the ED as needed and as discussed. Definitive disposition and diagnosis as appropriate pending reevaluation and review of above. Bilateral Back Pain Score (Numeric/FACES): 4 - Related Data Allergies Allergy/AdvReac Type Severity Reaction Status Date / Time No Known Allergies Allergy Verified 01/02/21 23:34 Home Meds: Home Meds . [No Known Home Meds] 01/02/21 [History] Past Medical History Cardiovascular History: Reports: Other (See Below) Other Cardiovascular History: Post Cardiomyopathy [employer] History: Reports: - Infectious Disease History Infectious Disease History: Reports: Chicken Pox Social & Family History - Family History Family Medical History: No Pertinent Family History - Tobacco Use Tobacco Use Status *Q: Never Tobacco User Second Hand Smoke Exposure: No - Caffeine Use Caffeine Use: Reports: None - Recreational Drug Use Recreational Drug Use: No ED ROS GENERAL - Review of Systems Review Of Systems: Comprehensive ROS is negative, except as noted in HPI. ED EXAM, GENERAL - Physical Exam Exam: See Below (see dictation) Course - Vital Signs Last Recorded V/S: Last Vital Signs Temp 98.8 F 03/22/21 16:54 Pulse 77 03/22/21 16:54 Resp 18 03/22/21 16:54 BP 123/75 03/22/21 16:54 Pulse Ox 97 03/22/21 16:54 - Orders/Labs/Meds Labs: Laboratory Tests 03/22/21 03/22/21 03/22/21 Range/Units 11:56 13:22 13:22 WBC 7.54 (4.0-11.0) K/uL RBC 4.16 L (4.30-5.90) M/uL Hgb 12.9 (12.0-16.0) g/dL Hct 37.0 (36.0-46.0) % MCV 88.9 (80.0-98.0) fL MCH 31.0 (27.0-32.0) pg MCHC 34.9 (31.0-37.0) g/dL RDW Std Deviation 43.7 (28.0-62.0) fl RDW Coeff of Alisson 14 (11.0-15.0) % Plt Count 330 (150-400) K/uL MPV 9.60 (7.40-12.00) fL Neut % (Auto) 62.4 (48.0-80.0) % Lymph % (Auto) 30.6 (16.0-40.0) % [place] % (Auto) 6.2 (0.0-15.0) % Eos % (Auto) 0.5 (0.0-7.0) % Baso % (Auto) 0.3 (0.0-1.5) % Neut # (Auto) 4.7 (1.4-5.7) K/uL Lymph # (Auto) 2.3 (0.6-2.4) K/uL [place] # (Auto) 0.5 (0.0-0.8) K/uL Eos # (Auto) 0.0 (0.0-0.7) K/uL Baso # (Auto) 0.0 (0.0-0.1) K/uL Nucleated RBC % 0.0 /100WBC Nucleated RBCs # 0 K/uL Sodium 139 (136-145) mmol/L Potassium 4.1 (3.5-5.1) mmol/L Chloride 102 (98-107) mmol/L Carbon Dioxide 30.2 (21.0-32.0) mmol/L BUN 7 (7.0-18.0) mg/dL Creatinine 0.7 (0.6-1.0) mg/dL Est Cr Clr Drug Dosing 117.39 mL/min Estimated GFR (MDRD) > 60.0 ml/min Glucose 98 (74-106) mg/dL Calcium 9.3 (8.5-10.1) mg/dL Total Bilirubin 0.3 (0.2-1.0) mg/dL AST 18 (15-37) IU/L ALT 31 (14-63) IU/L Alkaline Phosphatase 57 (46-116) U/L Total Protein 7.5 (6.4-8.2) g/dL Albumin 3.8 (3.4-5.0) g/dL Globulin 3.7 (2.6-4.0) g/dL Albumin/Globulin Ratio 1.0 (0.9-1.6) HCG, Quant 885.0 mIU/mL Urine Color YELLOW Urine Appearance CLEAR Urine pH 7.5 (5.0-8.0) Ur Specific Emery 1.020 (1.001-1.035) Urine Protein NEGATIVE (NEGATIVE) mg/dL Urine Glucose (UA) NEGATIVE (NEGATIVE) mg/dL Urine Ketones NEGATIVE (NEGATIVE) mg/dL Urine Occult Blood NEGATIVE (NEGATIVE) Urine Nitrite NEGATIVE (NEGATIVE) Urine Bilirubin NEGATIVE (NEGATIVE) Urine Urobilinogen 0.2 (<2.0) EU/dL Ur Leukocyte Esterase NEGATIVE (NEGATIVE) Blood Type 03/22/21 Range/Units 13:22 WBC (4.0-11.0) K/uL RBC (4.30-5.90) M/uL Hgb (12.0-16.0) g/dL Hct (36.0-46.0) % MCV (80.0-98.0) fL MCH (27.0-32.0) pg MCHC (31.0-37.0) g/dL RDW Std Deviation (28.0-62.0) fl RDW Coeff of Alisosn (11.0-15.0) % Plt Count (150-400) K/uL MPV (7.40-12.00) fL Neut % (Auto) (48.0-80.0) % Lymph % (Auto) (16.0-40.0) % [place] % (Auto) (0.0-15.0) % Eos % (Auto) (0.0-7.0) % Baso % (Auto) (0.0-1.5) % Neut # (Auto) (1.4-5.7) K/uL Lymph # (Auto) (0.6-2.4) K/uL [place] # (Auto) (0.0-0.8) K/uL Eos # (Auto) (0.0-0.7) K/uL Baso # (Auto) (0.0-0.1) K/uL Nucleated RBC % /100WBC Nucleated RBCs # K/uL Sodium (136-145) mmol/L Potassium (3.5-5.1) mmol/L Chloride (98-107) mmol/L Carbon Dioxide (21.0-32.0) mmol/L BUN (7.0-18.0) mg/dL Creatinine (0.6-1.0) mg/dL Est Cr Clr Drug Dosing mL/min Estimated GFR (MDRD) ml/min Glucose (74-106) mg/dL Calcium (8.5-10.1) mg/dL Total Bilirubin (0.2-1.0) mg/dL AST (15-37) IU/L ALT (14-63) IU/L Alkaline Phosphatase (46-116) U/L Total Protein (6.4-8.2) g/dL Albumin (3.4-5.0) g/dL Globulin (2.6-4.0) g/dL Albumin/Globulin Ratio (0.9-1.6) HCG, Quant mIU/mL Urine Color Urine Appearance Urine pH (5.0-8.0) Ur Specific Emery (1.001-1.035) Urine Protein (NEGATIVE) mg/dL Urine Glucose (UA) (NEGATIVE) mg/dL Urine Ketones (NEGATIVE) mg/dL Urine Occult Blood (NEGATIVE) Urine Nitrite (NEGATIVE) Urine Bilirubin (NEGATIVE) Urine Urobilinogen (<2.0) EU/dL Ur Leukocyte Esterase (NEGATIVE) Blood Type B POSITIVE Departure - Departure Time of Disposition: 16:28 Disposition: Home, Self-Care 01 Clinical Impression: Abnormal human chorionic gonadotropin (hCG), Positive test - Discharge Information Instructions: Abdominal Pain During , [id number] Referrals: Lauren Aflord MD [Primary Care Provider] - Forms: ED Department Discharge Additional Instructions: The following information is given to patients seen in the emergency department who are being discharged to home. This information is to outline your options for follow-up care. We provide all patients seen in our emergency department with a follow-up referral. The need for follow-up, as well as the timing and circumstances, are variable depending upon the specifics of your emergency department visit. If you don't have a primary care physician on staff, we will provide you with a referral. We always advise you to contact your personal physician following an emergency department visit to inform them of the circumstance of the visit and for follow-up with them and/or the need for any referrals to a consulting specialist. The emergency department will also refer you to a specialist when appropriate. This referral assures that you have the opportunity for follow-up care with a specialist. All of these measure are taken in an effort to provide you with optimal care, which includes your follow-up. Under all circumstances we always encourage you to contact your private physician who remains a resource for coordinating your care. When calling for follow-up care, please make the office aware that this follow-up is from your recent emergency room visit. If for any reason you are refused follow-up, please contact the [facility] Emergency Department at and asked to speak to the emergency department charge nurse. [facility] [address] [place] [id number] [facility] [address] [place] [id number] [facility] [address] [place] [address] 1. Please start and/or continue to take your vitamin with folic acid once daily. 2. Pelvic rest until cleared by your OBGYN (no tampons, sex, etc...) 3. Tylenol as needed for pain management. This is safe to use in . 4. Follow up with your [employer]INEER tomorrow as scheduled. Return to the ED as needed and as discussed. Sepsis Event Note (ED) - Focused Exam Vital Signs: Vital Signs Temp Pulse Resp BP Pulse Ox 03/22/21 16:54 98.8 F 77 18 123/75 97 03/22/21 15:12 108 H 107/66 97 03/22/21 13:24 103 H 137/90 99 03/22/21 12:54 99.0 F 79 18 123/64 100
[2021-03-22 16:56] VITALS: BP 123/75; PULSE 77
== END 2021-03-22 16:57 | disposition home or self-care (01) ==
LOC: MW.ED 11:02
DX: O02.81 Inappropriate change in quantitative human chorionic gonadotropin (hCG) in early pregnancy (principal); Z3A.01 Less than 8 weeks gestation of pregnancy
CPT/HCPCS: 36415; 76801; 76801-26; 80053; 81003; 84702; 85025; 86900; 86901; 99284-25

== ENCOUNTER 2021-08-17 18:09 | Emergency (ER) | payer BC ==
[2021-08-17] MEDS ORDERED: Amoxicillin/Clavulanate K 875-125 MG Tab PO ONE (18:35)
[2021-08-17 19:11] VITALS: BP 125/68; PULSE 65
== END 2021-08-17 19:00 | disposition home or self-care (01) ==
LOC: MW.ED 18:09
DX: S61.253A Open bite of left middle finger without damage to nail, initial encounter (principal); W54.0XXA Bitten by dog, initial encounter
CPT/HCPCS: 99283; A9270; 99282

== ENCOUNTER 2022-02-16 00:04 | Inpatient (IN) | payer BC ==
[2022-02-16] MEDS ORDERED: Carboprost Tromethamine 250 MCG/1 ML Amp IM PRN (00:54)
[2022-02-16] MEDS ORDERED: Sodium Chloride 0.9% 10 ML Syringe FLUSH PRN (00:54)
[2022-02-16] MEDS ORDERED: Tranexamic Acid 1,000 MG in Sodium Chloride 0.9% 100 ML IV PRN (00:54)
[2022-02-16] MEDS ORDERED: Butorphanol 1 MG/ML SDV IVPUSH PRN (00:54)
[2022-02-16] MEDS ORDERED: Lidocaine 1% 50 ML MDV INJECT PRN (00:54)
[2022-02-16] MEDS ORDERED: Terbutaline 1 MG/ML SDV SUBCUT PRN (00:54)
[2022-02-16] MEDS ORDERED: Methylergonovine 0.2 MG/1 ML Amp IM PRN (00:54)
[2022-02-16] MEDS ORDERED: Water For Irrigation,Sterile 1,000 ML Container IRR PRN (00:54)
[2022-02-16] MEDS ORDERED: Sodium Chloride 0.9% 2.5 ML Syringe FLUSH PRN (00:54)
[2022-02-16] MEDS ORDERED: Sodium Chloride 0.9% 20 ML SDV IV PRN (00:54)
[2022-02-16] MEDS ORDERED: Misoprostol 200 MCG Tab PO PRN (00:54)
[2022-02-16] MEDS ORDERED: Ondansetron 4 MG/2 ML SDV IVPUSH PRN (00:54)
[2022-02-16] MEDS ORDERED: Oxytocin/0.9 % Sodium Chloride 30 UNIT/500 ML BAG IV SCH ×2 (01:00)
[2022-02-16] MEDS ORDERED: Misoprostol 25 MCG (1/4 of 100 MCG) Tab VAG PRN ×2 (01:30→05:30)
[2022-02-16] MEDS: Lactated Ringers 1,000 ML IV SCH ×3 (06:07→12:51)
[2022-02-16] MEDS ORDERED: Ropivacaine/PF 400 MG/200 ML PCA ONE (07:25)
[2022-02-16] MEDS ORDERED: ePHEDrine 50 MG/ML SDV IVPUSH PRN (07:46)
[2022-02-16] MEDS ORDERED: Phenylephrine HCl In 0.9% NaCl 1 MG/10 ML Vial IVPUSH SCH (08:00)
[2022-02-16] MEDS ORDERED: Ropivacaine HCl/PF 400 MG in Premix Bag 1 BAG EPIDUR SCH (08:00)
[2022-02-16] MEDS ORDERED: fentaNYL 100 MCG/2 ML SDV ONE ×2 (13:33→15:18)
[2022-02-16] MEDS ORDERED: Bupivacaine 0.25% 10 ML SDV ONE (15:58)
[2022-02-16] MEDS ORDERED: Dexmedetomidine 200 MCG/2 ML SDV ONE (15:59)
[2022-02-16] MEDS ORDERED: Ropivacaine 0.5% 5 MG/ML 30 ML SDV ONE (15:59)
[2022-02-16] MEDS ORDERED: Lidocaine 2% with EPINEPHrine 1:200,000 20 ML SDV ONE (15:59)
[2022-02-16] MEDS ORDERED: Lanolin 100% Cream 7 GM Tube TOP PRN (16:42)
[2022-02-16] MEDS ORDERED: Benzocaine/Menthol 20%-0.5% Spray 78 GM Cannister TOP PRN (16:42)
[2022-02-16] MEDS ORDERED: Ibuprofen 800 MG Tab PO PRN (16:42)
[2022-02-16] MEDS ORDERED: Simethicone 80 MG Tab.Chew PO PRN (16:42)
[2022-02-16] MEDS ORDERED: Witch Hazel Medicated Pads 40/Jar TOP PRN (16:42)
[2022-02-16] MEDS ORDERED: Aluminum Hydroxide/Magnesium Hydroxide/Simethicone XS Susp 30 ML Cup PO PRN (16:42)
[2022-02-16] MEDS ORDERED: Docusate Sodium 100 MG Cap PO PRN (16:42)
[2022-02-16] MEDS ORDERED: Bisacodyl 10 MG Supp RECTAL PRN (16:42)
[2022-02-16] MEDS ORDERED: Acetaminophen 500 MG Tab PO PRN (16:42)
[2022-02-16] MEDS ORDERED: Ibuprofen 400 MG Tab PO PRN (16:42)
[2022-02-16] MEDS ORDERED: oxyCODONE 5 MG Tab PO PRN (16:42)
[2022-02-16] MEDS: Acetaminophen 500 MG Tab PO PRN (21:18)
[2022-02-17] MEDS: Acetaminophen 500 MG Tab PO PRN (04:32)
[2022-02-17 17:58] VITALS: BP 121/66; PULSE 66
== END 2022-02-17 20:05 | disposition home or self-care (01) | DRG 560 ==
LOC: MW.OBCHECK 00:04 → MW.OB 00:54 → OBSVTOIN 16:42 → MW.OB 18:52
PROVIDERS: ADMIT Obstetrics & Gynecology; ATTEND Obstetrics & Gynecology
PROC: 10E0XZZ Delivery of Products of Conception, External Approach (ICD-10-PCS; principal; 2022-02-16)
PROC: 3E0P7VZ Introduction of Hormone into Female Reproductive, Via Natural or Artificial Opening (ICD-10-PCS; 2022-02-16)
PROC: 3E0R3BZ Introduction of Anesthetic Agent into Spinal Canal, Percutaneous Approach (ICD-10-PCS; 2022-02-16)
PROC: 00HU33Z Insertion of Infusion Device into Spinal Canal, Percutaneous Approach (ICD-10-PCS; 2022-02-16)
DX: O98.52 Other viral diseases complicating childbirth (principal); U07.1 COVID-19; Z37.0 Single live birth; Z3A.39 39 weeks gestation of pregnancy
CPT/HCPCS: 01967; 36415; 59025; 59409; 82803; 85014; 85018; 85027; 86592; 86850; 86900; 86901; A9270-GY; J2405; J2590; J2795; J3010; J3490; J7120; U0002

== ENCOUNTER 2025-03-05 11:16 | Inpatient (IN) | payer BC ==
[2025-03-05] MEDS ORDERED: Terbutaline 1 MG/ML SDV SUBCUT PRN (11:53)
[2025-03-05] MEDS ORDERED: Carboprost Tromethamine 250 MCG/1 mL Vial IM PRN (11:57)
[2025-03-05] MEDS ORDERED: Water For Irrigation,Sterile 1,000 ML Container IRR PRN (11:57)
[2025-03-05] MEDS ORDERED: Butorphanol 1 MG/ML SDV IVPUSH PRN (11:57)
[2025-03-05] MEDS ORDERED: Sodium Chloride 0.9% 2.5 ML Syringe FLUSH PRN (11:57)
[2025-03-05] MEDS ORDERED: Sodium Chloride 0.9% 10 ML Syringe FLUSH PRN (11:57)
[2025-03-05] MEDS ORDERED: Ondansetron 4 MG/2 ML SDV IVPUSH PRN ×2 (12:03→23:06)
[2025-03-05] MEDS: Lactated Ringers 1,000 ML IV SCH (12:20)
[2025-03-05 13:03] LABS: MEAN PLATELET VOLUME 10.1 fL (9.4-12.3); NRBC ABSOLUTE 0.00 K/uL (0.00-0.02); NRBC PERCENT 0.0 /100WBC (0.0-0.2); PLATELET COUNT,PLT 250 K/uL (150-400); RED BLOOD CELL COUNT 3.57 M/uL (4.10-5.30); WHITE BLOOD CELL COUNT,WBC 8.65 K/uL (3.9-11.3)
[2025-03-05] MEDS ORDERED: dexmedeTOMIDine HCl 200 MCG/2 ML SDV ONE (17:19)
[2025-03-05] MEDS ORDERED: Ropivacaine HCl/PF 200 ML ONE (17:19)
[2025-03-05] MEDS: Ropivacaine HCl/PF 400 MG in Premix Bag 1 BAG EPIDUR SCH (17:33)
[2025-03-05] MEDS ORDERED: ePHEDrine 50 MG/ML SDV IVPUSH PRN (17:44)
[2025-03-05] MEDS ORDERED: dexmedeTOMIDine HCl 200 MCG/2 ML SDV EPIDUR SCH (17:45)
[2025-03-05] MEDS: Oxytocin/0.9 % Sodium Chloride 30 UNIT/500 ML BAG IV SCH (22:09)
[2025-03-05] MEDS ORDERED: Aluminum Hydroxide/Magnesium Hydroxide/Simethicone Susp 30 ML Cup PO PRN (23:06)
[2025-03-06 00:02] LABS: PH,UMBILICAL ARTERIAL 7.26 (7.18-7.38); PH,UMBILICAL VENOUS 7.34 (7.25-7.45)
[2025-03-06] MEDS: Witch Hazel Medicated Pads 40/Jar TOP PRN (00:12)
[2025-03-06] MEDS: Benzocaine/Menthol 20%-0.5% Spray 78 GM Cannister TOP PRN (00:12)
[2025-03-06] MEDS: Lanolin 100% Cream 7 GM Tube TOP PRN (00:13)
[2025-03-06 05:47] LABS: BASOPHILS ABSOLUTE AUTO 0.04 K/uL (0.00-0.20); BASOPHILS PERCENT AUTO 0.3 % (0.0-1.0); EOSINOPHILS ABSOLUTE AUTO 0.03 K/uL (0.00-0.45); EOSINOPHILS PERCENT AUTO 0.3 % (0.0-6.0); IMMATURE GRAN ABSOLUTE AUTO 0.06 K/uL (0.00-0.05); IMMATURE GRAN PERCENT AUTO 0.5 % (0.0-0.4); LYMPHOCYTES ABSOLUTE AUTO 2.45 K/uL (1.00-4.80); LYMPHOCYTES PERCENT AUTO 20.8 % (24.0-44.0); MEAN PLATELET VOLUME 9.9 fL (9.4-12.3); MONOCYTES ABSOLUTE AUTO 0.75 K/uL (0.00-0.80); MONOCYTES PERCENT AUTO 6.4 % (0.0-8.0); NEUTROPHILS ABSOLUTE AUTO 8.47 K/uL (1.80-7.70); NEUTROPHILS PERCENT AUTO 71.7 % (41.0-71.0); NRBC ABSOLUTE 0.00 K/uL (0.00-0.02); NRBC PERCENT 0.0 /100WBC (0.0-0.2); PLATELET COUNT,PLT 217 K/uL (150-400); RED BLOOD CELL COUNT 3.26 M/uL (4.10-5.30); WHITE BLOOD CELL COUNT,WBC 11.80 K/uL (3.9-11.3)
[2025-03-06] MEDS: Sodium Ferric Gluconate Cmplex 125 MG in Sodium Chloride 0.9% 100 ML IV SCH (10:04)
[2025-03-07 08:31] VITALS: BP 124/75; PULSE 65
== END 2025-03-07 11:14 | disposition home or self-care (01) | DRG 560 ==
LOC: MW.OBCHECK 11:16 → MW.OB 11:22 → MW.OBCHECK 12:12 → MW.OB 12:16 → OBSVTOIN 03-06 02:48
PROVIDERS: ADMIT Obstetrics & Gynecology; ATTEND Obstetrics & Gynecology
PROC: 10E0XZZ Delivery of Products of Conception, External Approach (ICD-10-PCS; principal; 2025-03-06)
PROC: 3E0R3BZ Introduction of Anesthetic Agent into Spinal Canal, Percutaneous Approach (ICD-10-PCS; 2025-03-06)
PROC: 10907ZC Drainage of Amniotic Fluid, Therapeutic from Products of Conception, Via Natural or Artificial Opening (ICD-10-PCS; 2025-03-06)
DX: O99.824 Streptococcus B carrier state complicating childbirth (principal); O99.02 Anemia complicating childbirth; O76 Abnormality in fetal heart rate and rhythm complicating labor and delivery; O69.1XX0 Labor and delivery complicated by cord around neck, with compression, not applicable or unspecified; O90.81 Anemia of the puerperium; Z3A.38 38 weeks gestation of pregnancy; Z37.0 Single live birth; Z67.20 Type B blood, Rh positive; Z79.899 Other long term (current) drug therapy
CPT/HCPCS: 36415; 51702; 59025; 59409; 76815; 76815-26; 82803; 85025; 85027; 86592; 86850; 86900; 86901; A9270-GY; J0290; J0665; J2371; J2590; J2795; J2916; J7120

== ENCOUNTER 2025-04-30 22:14 | Emergency (ER) | payer BC ==
[2025-04-30] MEDS ORDERED: Sodium Chloride 0.9% 10 ML Syringe FLUSH PRN (22:30)
[2025-04-30] MEDS ORDERED: Sodium Chloride 0.9% 2.5 ML Syringe FLUSH PRN (22:30)
[2025-04-30 22:47] LABS: APPEARANCE,URINE CLEAR; GLUCOSE,URINE NEGATIVE (NEGATIVE); OCCULT BLOOD,URINE NEGATIVE (NEGATIVE)
[2025-04-30] MEDS: Ketorolac 30 MG/ML SDV IVPUSH ONE (22:52)
[2025-04-30] MEDS: ceFAZolin 2 GM in Water For Injection, Sterile 20 ML IVPUSH ONE (22:52)
[2025-04-30] MEDS: Ondansetron 4 MG/2 ML SDV IVPUSH ONE (22:52)
[2025-04-30 22:57] LABS: BASOPHILS ABSOLUTE AUTO 0.03 K/uL (0.00-0.20); BASOPHILS PERCENT AUTO 0.2 % (0.0-1.0); EOSINOPHILS ABSOLUTE AUTO 0.01 K/uL (0.00-0.45); EOSINOPHILS PERCENT AUTO 0.1 % (0.0-6.0); IMMATURE GRAN ABSOLUTE AUTO 0.04 K/uL (0.00-0.05); IMMATURE GRAN PERCENT AUTO 0.3 % (0.0-0.4); LYMPHOCYTES ABSOLUTE AUTO 0.71 K/uL (1.00-4.80); LYMPHOCYTES PERCENT AUTO 5.4 % (24.0-44.0); MEAN PLATELET VOLUME 9.2 fL (9.4-12.3); MONOCYTES ABSOLUTE AUTO 0.76 K/uL (0.00-0.80); MONOCYTES PERCENT AUTO 5.8 % (0.0-8.0); NEUTROPHILS ABSOLUTE AUTO 11.53 K/uL (1.80-7.70); NEUTROPHILS PERCENT AUTO 88.2 % (41.0-71.0); NRBC ABSOLUTE 0.00 K/uL (0.00-0.02); NRBC PERCENT 0.0 /100WBC (0.0-0.2); PLATELET COUNT,PLT 255 K/uL (150-400); RED BLOOD CELL COUNT 4.33 M/uL (4.10-5.30); WHITE BLOOD CELL COUNT,WBC 13.08 K/uL (3.9-11.3)
[2025-04-30 23:03] LABS: EPITHELIAL CELLS,URINE FEW (NONE-FEW)
[2025-04-30 23:27] LABS: A/G RATIO 1.2 (0.9-1.6); ALANINE AMINOTRANSFERASE,ALT 20.0 IU/L (14-63); ASPARTATE AMNIOTRANSFERASE,AST 17.0 IU/L (15-37); BILIRUBIN TOTAL 0.4 mg/dL (0.2-1.0); BLOOD UREA NITROGEN,BUN 18.0 mg/dL (7.0-18.0); CARBON DIOXIDE,CO2 27.0 mmol/L (21.0-32.0); CHLORIDE,CL 101.0 mmol/L (98-107); CREATININE 0.9 mg/dL (0.6-1.0); EST CRCL DRUG DOSING (CG) 84.01 mL/min; GLUCOSE RANDOM 107.0 mg/dL (74-106); POTASSIUM,K 3.7 mmol/L (3.5-5.1); PRO B-TYPE NATRIUR PEPT,BNPPRO 72.0 pg/mL (0-125); PROTEIN TOTAL,TP 7.4 g/dL (6.4-8.2); SODIUM,NA 137.0 mmol/L (136-145)
[2025-04-30 23:32] LABS: ESTIMATED GFR 87.0 mL/min (>60)
[2025-05-01] VITALS: PULSE 81
[2025-05-01 00:41] VITALS: BP 97/51
== END 2025-05-01 00:56 | disposition home or self-care (01) ==
LOC: MW.ED 22:14
DX: J18.9 Pneumonia, unspecified organism (principal); R51.9 Headache, unspecified; N64.4 Mastodynia; E83.42 Hypomagnesemia; Z79.899 Other long term (current) drug therapy
CPT/HCPCS: 36415; 71045; 80053; 81001; 81025; 83605; 83690; 83735; 83880; 84484; 85025; 87040; 87086; 87428; 87651; 96361; 96374; 96375; 99284; A4216; A9270; J0690; J1885; J2405; J7030; 99283